=== PATIENT | male | born 2005 | race Caucasian/White ===

== ENCOUNTER 2024-02-17 17:53 | Emergency (ER) | payer OTHER, SELFPAY ==
--- NOTE | ~2024-02-17 | XR_ITS ---
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 RESULT: Lines, tubes, and devices: None. Lungs and pleura: Clear. Cardiomediastinal silhouette: Normal. Other: No acute osseous or upper abdominal finding. IMPRESSION: No acute cardiopulmonary process. Reviewed, dictated and finalized at location K. VE [employer]TER [employer] STITCH
[2024-02-17 17:55] VITALS: BP 127/80; PULSE 104; RESP 20; TEMP 36.8; O2SAT 99
--- NOTE | 2024-02-17 18:07 | ECG_ITS ---
Test Date: 2024-02-17 18:40:51 Measurements Intervals [place] Rate: 109 P: 71 IN: 124 QRS: 86 QRSD: 102 T: 47 QT: 309 QTc: 416 Interpretive Statements SINUS TACHYCARDIA BASELINE ARTIFACT- I, II, AVR ABNORMAL ECG No previous ECG available for comparison Electronically Signed On 02-17-2024 20:49:03 MODEL SET ARTIST by Tono Cruz D.O.
[2024-02-17 19:48] LABS: Basophils Absolute Auto 0.1 K/mm3 (0.0-0.1); Basophils Percent Auto 0.5 % (0.2-1.2); Eosinophils Absolute Auto 0.1 K/mm3 (0-0.3); Eosinophils Percent Auto 0.7 % (0-4.4); Hematocrit 47.9 % (42.0-52.0); Hemoglobin 16.6 g/dL (14.0-18.0); Immature Granulocyte Absolute 0.03 K/mm3 (0.00-0.031); Immature Granulocyte Percent A 0.3 % (0-0.5); Lymphocytes Absolute Auto 1.04 K/mm3 (0.9-3.2); Lymphocytes Percent Auto 9.9 % (18.3-44.2); Mean Corpuscular HGB Conc 34.7 g/dl (32-36); Mean Corpuscular Hemoglobin 28.4 pg (26-34); Mean Corpuscular Volume 81.9 fl (80-100); Monocytes Absolute Auto 0.8 K/mm3 (0.1-0.6); Monocytes Percent Auto 7.9 % (2.6-8.5); Neutrophils Absolute Auto 8.5 K/mm3 (1.3-6.7); Neutrophils Percent Auto 80.7 % (45.5-73.1); Platelet Count Result 250 k/mm3 (150-375); Red Blood Count 5.85 M/mm3 (4.6-6.20); Red Cell Distribution Width 12.3 % (11.5-14.5); White Blood Count 10.5 K/mm3 (4.5-10.0)
[2024-02-17 19:58] LABS: Alanine Aminotransferase 20 U/L (6-50); Albumin Level 4.9 g/dL (3.5-5.1); Alkaline Phosphatase 82 U/L (38-126); Anion Gap 7 mmol/L (4-12); Aspartate Amino Transferase 27 U/L (17-59); Bilirubin,Total 0.6 mg/dL (0.2-1.3); Blood Urea Nitrogen 11 mg/dL (9-20); Calcium 9.8 mg/dL (8.4-10.2); Carbon Dioxide 27 mmol/L (22-30); Chloride 104 mmol/L (98-107); Estimated CRCL calculation 122 ml/min; Estimated Glomerular Filt Rate > 60; Glucose 96 mg/dL (65-110); Lipase 81 U/L (23-300); Potassium 3.7 mmol/L (3.4-5.0); Sodium 138 mmol/L (137-145)
[2024-02-17 19:59] LABS: Prothrombin Time 13.6 Seconds (11.1-14.7)
[2024-02-17 20:00] LABS: Partial Thromboplastin Time 27.6 Seconds (22.3-36.8)
[2024-02-17 20:10] LABS: Troponin I < 0.012 ng/mL (0.000-0.034)
[2024-02-17 20:11] VITALS: BP 135/95; PULSE 103; PULSE 107; RESP 18; O2SAT 100
--- NOTE | 2024-02-17 20:57 | ECG_ITS ---
Test Date: 2024-02-17 21:02:40 Measurements Intervals [place] Rate: 110 P: 69 [place]: 116 QRS: 89 QRSD: 106 T: 49 QT: 312 QTc: 423 Interpretive Statements SINUS TACHYCARDIA BASELINE ARTIFACT- I, III, AVR, AVL, AVF ABNORMAL ECG Compared to ECG 02/17/2024 18:40:51 NO SIGNIFICANT CHANGE Electronically Signed On 02-18-2024 07:40:36 AMPHIBIOUS OPERATIONS OFFICER by Tono Cruz D.O.
[2024-02-17] MEDS: IPRATROPIUM 0.5 MG/ALBUTEROL SULFATE 2.5 MG AMPUL.NEB 3 ML INHALATION (21:07)
[2024-02-17 21:08] VITALS: PULSE 118; RESP 22
[2024-02-17 21:15] LABS: D Dimer < 0.27 ug/mL (<0.48)
[2024-02-17 21:17] VITALS: PULSE 137; RESP 20
[2024-02-17 21:47] LABS: Influenza A QL RT-PCR Negative (Negative); Influenza B QL RT-PCR Negative (Negative); RSV RNA, RT-PCR Negative (Negative); SARS-CoV-2 RNA PCR Negative (Negative)
[2024-02-17 22:15] VITALS: BP 132/96; PULSE 100; RESP 12; O2SAT 98
--- NOTE | 2024-02-17 22:57 | ED.GENADULT ---
HPI - General Adult General Chief complaint: Chest Pain Stated complaint: R. chest pain, hands tingling, sob Time Seen by Provider: 02/17/24 20:49 History of Present Illness HPI narrative: Patient is a 18-year-old gentleman who presents emergency department with chief complaint of cough. Patient states that he has been very anxious which is normal for him reports for the last 2 weeks he has had a productive cough patient denies fever reports he has had some wheezing as well. Patient seen in urgent care and started come to the emergency department for further evaluation. Related Data Allergies Allergy/AdvReac Type Severity Reaction Status Date / Time No Known Allergies Allergy Verified 02/17/24 20:15 Review of Systems Review of Systems: A 10 system review of systems was completed on the patient and is negative except for what is stated in the HPI. Nursing and ancillary documentation was reviewed. Exam Narrative: GENERAL: Well-appearing, well-nourished, and in no acute distress. HEAD: Normocephalic, atraumatic. EYES: PERRLA and EOMI. ENT: Nares clear, no rhinorrhea or epistaxis. Mucous membranes moist. NECK: Supple. CHEST: Clear to auscultation. No respiratory distress. HEART: Tachycardic rate and regular rhythm. No murmur heard. Normal peripheral pulses. ABDOMEN: Soft, nontender, nondistended, normal active bowel sounds. EXTREMITIES: Normal range of motion. No edema. SKIN: Warm, dry, no rash. NEURO: No focal deficits. Alert and oriented x3. PSYCH: Normal mood and affect. Course Vital Signs Vital signs: Vital Signs Temperature 36.8 C 02/17/24 17:55 Pulse Rate 104 H 02/17/24 17:55 Respiratory Rate 20 02/17/24 17:55 Blood Pressure 127/80 02/17/24 17:55 Pulse Oximetry 99 02/17/24 17:55 Oxygen Delivery Room Air 02/17/24 17:55 Temperature 36.8 C 02/17/24 17:55 Pulse Rate 100 02/17/24 22:15 Respiratory Rate 12 02/17/24 22:15 Blood Pressure 132/96 H 02/17/24 22:15 Pulse Oximetry 98 02/17/24 22:15 Oxygen Delivery Room Air 02/17/24 17:55 Medical Decision Making MDM Narrative Medical decision making narrative: differential diagnosis includes pulmonary embolism, electrolyte abnormality, ACS, pneumonia, bacterial bronchitis, patient had a negative D-dimer in the emergency department initial troponin was negative repeat troponin was negative chest x-ray showed no focal infiltrate given the patient has had a productive cough for the last 2 weeks the patient will be treated for bacterial bronchitis. The patient will also be given prednisone and given a prescription for inhaler and cough medication. Vital Signs Vital Signs: Vital Signs Temperature 36.8 C 02/17/24 17:55 Pulse Rate 104 H 02/17/24 17:55 Respiratory Rate 20 02/17/24 17:55 Blood Pressure 127/80 02/17/24 17:55 Pulse Oximetry 99 02/17/24 17:55 Oxygen Delivery Room Air 02/17/24 17:55 Temperature 36.8 C 02/17/24 17:55 Pulse Rate 100 02/17/24 22:15 Respiratory Rate 12 02/17/24 22:15 Blood Pressure 132/96 H 02/17/24 22:15 Pulse Oximetry 98 02/17/24 22:15 Oxygen Delivery Room Air 02/17/24 17:55 Lab Data 02/17/24 19:40 02/17/24 19:40 Labs: Lab Results 02/17/24 02/17/24 Range/Units 19:40 21:05 WBC 10.5 H (4.5-10.0) K/mm3 RBC 5.85 (4.6-6.20) M/mm3 Hgb 16.6 (14.0-18.0) g/dL Hct 47.9 (42.0-52.0) % MCV 81.9 (80-100) fl MCH 28.4 (26-34) pg MCHC 34.7 (32-36) g/dl RDW 12.3 (11.5-14.5) % Plt Count 250 (150-375) k/mm3 MPV 10.0 (7.4-10.4) fl Immature Gran % (Auto) 0.3 (0-0.5) % Neut % (Auto) 80.7 H (45.5-73.1) % Lymph % (Auto) 9.9 L (18.3-44.2) % [place] % (Auto) 7.9 (2.6-8.5) % Eos % (Auto) 0.7 (0-4.4) % Baso % (Auto) 0.5 (0.2-1.2) % Lymph # (Auto) 1.04 (0.9-3.2) K/mm3 [place] # (Auto) 0.8 H (0.1-0.6) K/mm3 Eos # (Auto) 0.1 (0-0.3) K/mm3 Baso # (Auto) 0.1 (0.0-0.1) K/mm3 Abs Immat Gran (auto) 0.03 (0.00-0.031) K/mm3 Absolute Neuts (auto) 8.5 H (1.3-6.7) K/mm3 Absolute Nucleated RBC 0.000 (0.0-0.012) K/mm3 Nucleated RBC % 0.0 (0.0-0.2) % PT 13.6 (11.1-14.7) Seconds INR 1.0 APTT 27.6 (22.3-36.8) Seconds D-Dimer < 0.27 (<0.48) ug/mL Sodium 138 (137-145) mmol/L Potassium 3.7 (3.4-5.0) mmol/L Chloride 104 (98-107) mmol/L Carbon Dioxide 27 (22-30) mmol/L Anion Gap 7 (4-12) mmol/L BUN 11 (9-20) mg/dL Creatinine 0.90 (0.7-1.3) mg/dL Estim Creat Clear Calc 122 ml/min Estimated GFR > 60 (59 - ) Glucose 96 (65-110) mg/dL Calcium 9.8 (8.4-10.2) mg/dL Total Bilirubin 0.6 (0.2-1.3) mg/dL AST 27 (17-59) U/L ALT 20 (6-50) U/L Alkaline Phosphatase 82 (38-126) U/L Troponin I < 0.012 < 0.012 (0.000-0.034) ng/mL Total Protein 9.0 H (6.3-8.2) g/dL Albumin 4.9 (3.5-5.1) g/dL Lipase 81 (23-300) U/L Influenza A (RT-PCR) Negative (Negative) Influenza B (RT-PCR) Negative (Negative) RSV (RT-PCR) Negative (Negative) SARS-CoV-2 RNA (RT-PCR) Negative (Negative) Discharge Plan Discharge Clinical Impression: Acute bacterial bronchitis, Atypical chest pain Patient Disposition: Home, Self-Care Condition: Stable Instructions: Antibiotic Form, Chest Pain (ED), Acute Bronchitis (ED) Prescriptions: New doxycycline hyclate 100 mg tablet 100 mg PO BID Qty: 14 0RF prednisone 20 mg tablet 40 mg PO DAILY 5 Days Qty: 10 0RF benzonatate 200 mg capsule 200 mg PO TID PRN (Reason: cough) Qty: 21 0RF Follow-up/Referrals: Harjinder Wynn MD [Physician] - UNKNOWN,DOCTOR [Primary Care Provider] - Time of Disposition: 23:32
[2024-02-17 23:03] LABS: Troponin I < 0.012 ng/mL (0.000-0.034)
== END 2024-02-17 23:40 | disposition home or self-care (01) ==
PROVIDERS: Emergency Medicine; Emergency Provider Emergency Medicine
DX: J20.8 Acute bronchitis due to other specified organisms (principal); R07.89 Other chest pain; Z20.822 Contact with and (suspected) exposure to COVID-19; R00.0 Tachycardia, unspecified
CPT/HCPCS: 36415; 71046; 80053; 83690; 84484; 85025; 85380; 85610; 85730; 87637; 93005; 94640; 99284